=== PATIENT | female | born 1990 | race African-American/Black ===

== ENCOUNTER 2021-09-19 16:08 | Emergency (ER) | payer MEDICAID ==
[~2021-09-19] VITALS: Ht 157.5 cm; Wt 121.6 kg
[2021-09-19 16:12] VITALS: BP 142/69
--- NOTE | 2021-09-19 16:50 | NUR ---
Lab at bedside
[2021-09-19 17:07] LABS: BASOPHILS # (AUTO) 0.1 K/uL (0.00-0.22); BASOPHILS % (AUTO) 0.8 % (0.0-2.0); EOSINOPHILS # (AUTO) 0.2 K/uL (0-0.4); HEMATOCRIT 40.6 % (36-48); HEMOGLOBIN 13.5 g/dL (12.0-16.0); LYMPHOCYTES # (AUTO) 1.9 K/uL (2.5-16.5); MEAN CORPUSCULAR HEMOGLOBIN 30 pg (27-31); MEAN CORPUSCULAR HGB CONC 33 g/dL (33-37); MEAN CORPUSCULAR VOLUME 88.6 fL (80-94); MONOCYTES # (AUTO) 0.7 K/uL (0.8-1.0); MONOCYTES % (AUTO) 10.3 % (1.7-9.3); NEUTROPHILS # (AUTO) 4.2 K/uL (1.8-7.7); NEUTROPHILS % (AUTO) 58.9 % (42.2-75.2); PLATELET COUNT (AUTO) 226 K/uL (140-450); RED BLOOD CELL COUNT(AUTO) 4.58 MIL/uL (4.20-5.40); RED CELL DISTRIBUTION WIDTH 13.8 % (11.6-13.7); WHITE BLOOD COUNT (AUTO) 7.2 K/uL (4.8-10.8)
--- NOTE | 2021-09-19 17:30 | NUR ---
PATIENT PRESENTS TO ED WITH ABD PAIN THAT RADIATES TO LOWER BACK. PT STATES THE PAIN IS INTERMITTENT. DENIES N/V/D; SKIN IS PINK/WARM/DRY; AAOX4 WITH EVEN AND STEADY GAIT; PATIENT STATES PAIN OF 10/10 "IT COMES IN WAVES"; LAST BM TODAY; VSS; PATIENT POSITIONED FOR COMFORT; HOB ELEVATED; BEDRAILS UP X2; BED DOWN. ER MD MADE AWARE OF PT STATUS. NKDA
[2021-09-19 17:36] LABS: ALBUMIN 3.4 g/dL (3.4-5.0); ANION GAP 10.5 (8-16); CARBON DIOXIDE 25.5 mmol/L (21-32); TOTAL BILIRUBIN 0.4 mg/dL (0.0-1.0)
[2021-09-19 17:37] LABS: APPEARANCE,URINE CLEAR (CLEAR); BILIRUBIN,URINE NEGATIVE (NEGATIVE); BLOOD, URINE NEGATIVE (NEGATIVE); COLOR,URINE YELLOW (YELLOW); LEUKOCYTE ESTERASE ,URINE NEGATIVE (NEGATIVE); NITRITE, URINE NEGATIVE (NEGATIVE); UGLUCOSE NEGATIVE (NEGATIVE)
[2021-09-19] MEDS ORDERED: KETOROLAC 30 MG/ML VIAL IVP ONE (17:45)
[2021-09-19] MEDS ORDERED: NAPROXEN 500 MG TAB PO SCH (18:00)
[2021-09-19] MEDS ORDERED: NAPR-1704 PO (18:03)
[2021-09-19] MEDS ORDERED: BEN10 PO (18:03)
--- NOTE | 2021-09-19 18:36 | NUR ---
Patient discharged with v/s stable. Written and verbal after care instructions given and explained. Patient alert, oriented and verbalized understanding of instructions. Ambulatory with steady gait. All questions addressed prior to discharge. ID band removed. Patient advised to follow up with PMD. Rx of Bentyl and Naprosyn given. Patient educated on indication of medication including possible reaction and side effects. Opportunity to ask questions provided and answered.
== END 2021-09-19 18:29 | disposition home or self-care (01) ==
LOC: MED 16:08
DX: R10.31 Right lower quadrant pain (principal); R10.32 Left lower quadrant pain; R35.0 Frequency of micturition; Z79.899 Other long term (current) drug therapy; Z98.890 Other specified postprocedural states
CPT/HCPCS: 36415; 80053; 81003; 81025; 83690; 85025; 99283

== ENCOUNTER 2021-10-13 19:49 | Emergency (ER) | payer MEDICAID ==
[~2021-10-13] VITALS: Ht 157.5 cm; Wt 121.1 kg
[~2021-10-13 19:49] MED LIST: BEN10 PO; NAPR-1704 PO
[2021-10-13 20:07] VITALS: BP 158/97
[2021-10-13 21:06] VITALS: BP 158/97
--- NOTE | 2021-10-13 21:06 | NUR ---
PER ADMITING PT REPORTED SHE HAD HER KIDS IN THE CAR AND WAS GOING TO GO HOME AND GET SEEN ANOTHER TIME. PATIENT LEFT WITHOUT BEING SEEN BY DR. ROCHA. NO FURTHER CARE PROVIDED FOR PATIENT.
== END 2021-10-13 21:06 | disposition left against medical advice (07) ==
LOC: MED 19:49
DX: H57.12 Ocular pain, left eye (principal); Z53.21 Procedure and treatment not carried out due to patient leaving prior to being seen by health care provider